=== PATIENT | female | born 1995 ===

== ENCOUNTER 2018-04-12 17:24 | Emergency (ER) | payer OTHER ==
[2018-04-12 17:36] VITALS: O2SAT 100
--- NOTE | 2018-04-12 18:22 | ED PDOC ---
HPI: Female Pain Time Seen by Provider: 04/12/18 17:26 Chief Complaint (Nursing): Female Genitourinary Chief Complaint (Provider): Vaginal bleeding in - 5 weeks 6 days History Per: Patient History/Exam Limitations: clinical condition Onset/Duration Of Symptoms: Days Current Symptoms Are (Timing): Still Present Associated Symptoms: denies: Fever, Chills, Nausea, Vomiting, Loss Of Appetite Additional Complaint(s): 22 yo female at 5 weeks and 6 days gestation presents with 2 days of vaginal bleeding. Pt states it was similar to menses yesterday and slightly less today. PT states she was in [place] and was seen monday for . Pt did not have US. PT is not taking vitamins. Pt denies pain.. Past Medical History Reviewed: Historical Data, Nursing Documentation, Vital Signs Vital Signs: Last Vital Signs Temp 98.2 F 04/12/18 17:33 Pulse 85 04/12/18 17:33 Resp 14 04/12/18 17:33 BP 102/67 04/12/18 17:33 Pulse Ox 100 04/12/18 17:33 - Medical History PMH: No Chronic Diseases - Surgical History Surgical History: No Surg Hx - Family History Family History: States: No Known Family Hx - Living Arrangements Living Arrangements: With Family - Social History Current smoker - smoking cessation education provided: No Alcohol: None Drugs: Denies - Allergies Allergies/Adverse Reactions: Allergies Allergy/AdvReac Type Severity Reaction Status Date / Time No Known Allergies Allergy Verified 04/12/18 17:33 Review of Systems ROS Statement: Except As Marked, All Systems Reviewed And Found Negative Constitutional: Negative for: Fever, Chills Genitourinary Female: Positive for: Vaginal Bleeding. Negative for: Hematuria, Vaginal Discharge, Pelvic Pain Physical Exam - Reviewed Nursing Documentation Reviewed: Yes Vital Signs Reviewed: Yes - Physical Exam Appears: Positive for: Well, Non-toxic, No Acute Distress Head Exam: Positive for: ATRAUMATIC, NORMAL INSPECTION, NORMOCEPHALIC Skin: Positive for: Normal Color, Warm, DRY Eye Exam: Positive for: Normal appearance ENT: Positive for: Normal ENT Inspection Neck: Positive for: Normal, Painless ROM Cardiovascular/Chest: Positive for: Regular Rate, Rhythm Respiratory: Positive for: Normal Breath Sounds. Negative for: Accessory Muscle Use, Respiratory Distress Gastrointestinal/Abdominal: Positive for: Normal Exam. Negative for: Tenderness , Guarding, Rebound Back: Positive for: Normal Inspection Extremity: Positive for: Normal ROM Neurologic/Psych: Positive for: Alert - Laboratory Results Result Diagrams: 04/12/18 18:40 04/12/18 18:40 - ECG O2 Sat by Pulse Oximetry: 100 Medical Decision Making Medical Decision Making: (+) gestational sac (+) yolk sac Cervix closed. Disposition - Clinical Impression Clinical Impression: Threatened miscarriage in early , Need for rhogam due to Rh negative mother - Patient ED Disposition Is Patient to be Admitted: No Counseled Patient/Family Regarding: Diagnosis, Need For Followup - Disposition Referrals: [facility] [Outside] [facility] [Outside[facility] Disposition: Routine/Home Disposition Time: 20:32 Condition: GOOD Additional Instructions: Please follow-up with [facility] Instructions: Threatened Miscarriage Forms: [employer] (Turkmen)
[2018-04-12 18:42] LABS: SQUAMOUS EPITHIAL 1 /hpf (0-5); URINE BILIRUBIN NEGATIVE (NEGATIVE); URINE BLOOD NEGATIVE (NEGATIVE); URINE CLARITY CLEAR (Clear); URINE COLOR YELLOW (YELLOW); URINE GLUCOSE (UA) NEG (Normal); URINE LEUKOCYTE ESTERASE NEG Leu/uL (Negative); URINE PROTEIN NEGATIVE (NEGATIVE); URINE UROBILINOGEN 0.2-1.0 mg/dL (0.2-1.0)
[2018-04-12 18:53] LABS: BASO % 0.3 % (0.0-2.0); EOS # 0.1 K/uL (0.0-0.7); EOS % 0.9 % (0.0-4.0); HEMOGLOBIN 12.4 g/dL (12.0-16.0); LYMPH # 1.9 K/uL (1.0-4.3); LYMPH % 23.9 % (20.0-40.0); MEAN CELL VOLUME 86.6 fl (81.0-99.0); MEAN CORPUSCULAR HEMOGLOBIN 29.8 pg (27.0-31.0); MEAN CORPUSCULAR HGB CONC 34.4 g/dL (33.0-37.0); MEAN PLATELET VOLUME 7.3 fl (7.2-11.7); MONO # 0.5 K/uL (0.0-0.8); MONO % 5.8 % (0.0-10.0); NEUT # 5.4 K/uL (1.8-7.0); NEUT % 69.1 % (50.0-75.0); NRBC % 0.2 % (0.0-0.0); RBC 4.17 Mil/uL (3.80-5.20); RED CELL DISTRIBUTION WIDTH 13.9 % (11.5-14.5); WHITE BLOOD COUNT 7.9 K/uL (4.8-10.8)
[2018-04-12 19:06] LABS: ALB/GLOB RATIO 1.3 (1.0-2.1); ALT/SGPT 34 U/L (9-52); AST/SGOT 27 U/L (14-36); BLOOD UREA NITROGEN 12 mg/dl (7-17); CALCIUM 8.9 mg/dL (8.4-10.2); GFR AFRICAN-AMERICAN > 60; GFR NON-AFRICAN AMERICAN > 60
[2018-04-12 22:11] VITALS: BP 118/71; PULSE 90; RESP 16; TEMP 98.4
--- NOTE | 2018-04-13 09:17 | US ---
PROCEDURE: OB Pelvic Ultrasound HISTORY: Vaginal bleeding in COMPARISON: None available. FINDINGS: UTERUS: Intrauterine gestational sac identified. The sac diameter is 12 mm equivalent to 5 weeks 2 days gestational age. No pole identified. No cardiac activity observed. 3 mm yolk sac identified. viability is not yet established. Followup with serial beta HCG evaluation and transvaginal ultrasound is advised. Date of delivery (Ultrasound estimated) : 12/11/2018 rufino-gestational hemorrhage: None. Uterus measures 5.8 x 3.5 x 4.4 cm. No mass CERVIX: Long and closed. No cervical abnormality seen. RIGHT OVARY: Measures 2.7 x 1.4 x 2.6 cm. No mass. Normal flow. LEFT OVARY: Measures 1.9 x 1.2 x 2.4 cm. No mass. Normal flow. FREE FLUID: None. OTHER FINDINGS: None. IMPRESSION: Intrauterine gestational sac. Sac diameter corresponds to 5 weeks 2 days gestational age. No pole or cardiac activity is observed at this time. viability is not yet established. Followup with serial beta HCG and transvaginal pelvic ultrasound is advised. No subchorionic hemorrhage. Otherwise unremarkable. The preliminary findings for this examination were reported by [employer] at 8:26 p.m. on 04/12/2018. There is concurrence of this report with the preliminary findings.
== END 2018-04-12 22:10 | disposition home or self-care (01) ==
LOC: H.ER 17:24
DX: O20.0 Threatened abortion (principal); Z3A.01 Less than 8 weeks gestation of pregnancy
CPT/HCPCS: 76830; 80053; 81003; 81025; 84702; 85025; 86850; 86900; 87086; 99284; J2792

== ENCOUNTER 2018-05-07 19:08 | Emergency (ER) | payer SELFPAY ==
[2018-05-07 19:21] VITALS: O2SAT 100
--- NOTE | 2018-05-07 20:50 | ED PDOC ---
HPI: Abdomen Time Seen by Provider: 05/07/18 20:23 Chief Complaint (Nursing): Abdominal Pain Chief Complaint (Provider): abdominal pain History Per: Patient History/Exam Limitations: no limitations Onset/Duration Of Symptoms: Days (4), Waxing/Waning Current Symptoms Are (Timing): Still Present Location Of Pain/Discomfort: Diffuse Quality Of Discomfort: "Pain" Additional Complaint(s): 22 y/o female, approximately 8 weeks gestation, presents for evaluation of diffuse intermittent abdominal pain x 4 days. Pain worsened after eating. Denies fever, nausea/vomiting, chest pain, shortness of breath, palpitations, changes in bowel movements, dysuria/hematuria, vaginal bleeding/discharge Past Medical History Reviewed: Historical Data, Nursing Documentation, Vital Signs Vital Signs: Last Vital Signs Temp 98.1 F 05/07/18 19:18 Pulse 84 05/07/18 19:18 Resp 14 05/07/18 19:18 BP 102/66 05/07/18 19:18 Pulse Ox 100 05/07/18 22:29 - Medical History PMH: No Chronic Diseases - Surgical History Other surgeries: breast augmentation - Family History Family History: States: No Known Family Hx - Home Medications Home Medications: Ambulatory Orders Medication Instructions Recorded Nitrofurantoin Macrocrystals 100 mg PO BID #13 cap 05/07/18 [Macrobid] - Allergies Allergies/Adverse Reactions: Allergies Allergy/AdvReac Type Severity Reaction Status Date / Time No Known Allergies Allergy Verified 05/07/18 19:17 Review of Systems ROS Statement: Except As Marked, All Systems Reviewed And Found Negative Gastrointestinal: Positive for: Abdominal Pain Physical Exam - Reviewed Nursing Documentation Reviewed: Yes Vital Signs Reviewed: Yes - Physical Exam Appears: Positive for: Well, Non-toxic, No Acute Distress Head Exam: Positive for: ATRAUMATIC, NORMAL INSPECTION, NORMOCEPHALIC Skin: Positive for: Normal Color Eye Exam: Positive for: Normal appearance ENT: Positive for: Normal ENT Inspection Cardiovascular/Chest: Positive for: Regular Rate, Rhythm Respiratory: Positive for: Normal Breath Sounds Gastrointestinal/Abdominal: Positive for: Bowel Sounds, Soft, Tenderness ( epigastric, ruq, luq, rlq, suprapubic) Back: Positive for: Normal Inspection Extremity: Positive for: Normal ROM Neurologic/Psych: Positive for: Alert, Oriented (x3) - Laboratory Results Result Diagrams: 05/07/18 22:03 - ECG O2 Sat by Pulse Oximetry: 100 - Progress ED Course And Treament: labs, urine, u/s EXAM: US Abdomen Limited, Right Upper Quadrant EXAM DATE/TIME: 05/07/2018 8:46 PM CLINICAL HISTORY: 22 years old, female; Pain; Abdominal pain; Periumbilical; ; Additional info: Abd pain TECHNIQUE: Real-time ultrasound of the abdomen with image documentation. Examination is focused on the right upper quadrant. COMPARISON: No relevant prior studies available. FINDINGS: Liver: Normal. No masses. Gallbladder: The gallbladder is incompletely distended no gallstones are present. Gallbladder wall measures 2.5 mm Common bile duct: Normal. No stones. 2.2 mm Pancreas: Visualized pancreas is unremarkable. Right kidney: RIGHT kidney measures 9.9 cm x 4 cm x 4.3 cm IMPRESSION: 1. Incompletely distended gallbladder without stones 2. Otherwise negative examination EXAM: US , Transvaginal CLINICAL HISTORY: 22 years old, female; Pain; complicated by abdominal or pelvic pain; Lower; First trimester; Gestational age or lmp: 03/02/2018; ; Additional info: ; Pain TECHNIQUE: Real-time transvaginal obstetrical ultrasound of the maternal pelvis and a first trimester with image documentation. Transvaginal imaging was used for better evaluation of the fetus and adnexa. COMPARISON: US - TRANSVAGINAL 04/12/2018 6:27 PM FINDINGS: Gestation: Intrauterine gestational sac is seen 3.5 cm 8 weeks 5 days. Yolk sac is visible A fetus is present CRL 2.1 cm 8 weeks 5 days JEROME 12/12/2018. Heart rate 185 bpm Clinical gestational age 9 weeks 3 days JEROME 12/07/2018 Placenta/amniotic fluid: Cannot be adequately evaluated due to the early gestational age. Uterus/cervix: Unremarkable. No myometrial mass. Uterus 7.9 cm x 6 cm x 7 cm The cervix measures 3.3 cm Ovaries: Unremarkable. No mass. LEFT 2 cm x 1.3 cm 1.4 cm, RIGHT not visible Free fluid: A small collection of free fluid is seen in the cul-de-sac IMPRESSION: 1. Single living intrauterine . 2. Gestational age 8 weeks 5 days JEROME 12/12/2018 3. Negative LEFT ovary 4. Negative uterus and cervix 5. RIGHT ovary not visible 6. Small collection of free fluid in the cul-de-sac Patient educated on findings, discharged with rx Macrobid (dose given in ED) Advised follow up [place] 2-3 days Return precautions given Disposition - Clinical Impression Clinical Impression: UTI (urinary tract infection), Abdominal pain during - Patient ED Disposition Is Patient to be Admitted: No Counseled Patient/Family Regarding: Studies Performed, Diagnosis, Need For Followup, Rx Given - Disposition [facility]errals[facility] [[facility]] Disposition: Routine/Home Disposition Time: 22:39 Condition: IMPROVED Prescriptions: Nitrofurantoin Macrocrystals [Macrobid] 100 mg PO BID #13 cap Instructions: Urinary Tract Infections in Adults, Round Ligament Pain
[2018-05-07 21:57] LABS: SQUAMOUS EPITHIAL 13 /hpf (0-5); URINE BACTERIA RARE (<OCC); URINE BILIRUBIN NEGATIVE (NEGATIVE); URINE BLOOD NEGATIVE (NEGATIVE); URINE CLARITY CLOUDY (Clear); URINE COLOR YELLOW (YELLOW); URINE GLUCOSE (UA) NEG (Normal); URINE LEUKOCYTE ESTERASE MOD Leu/uL (Negative); URINE PROTEIN 30 mg/dL (NEGATIVE); URINE UROBILINOGEN 0.2-1.0 mg/dL (0.2-1.0)
[2018-05-07 22:10] LABS: BASO % 0.2 % (0.0-2.0); EOS % 0.4 % (0.0-4.0); HEMOGLOBIN 13.3 g/dL (12.0-16.0); LYMPH # 1.3 K/uL (1.0-4.3); LYMPH % 16.4 % (20.0-40.0); MEAN CELL VOLUME 86.3 fl (81.0-99.0); MEAN CORPUSCULAR HEMOGLOBIN 30.1 pg (27.0-31.0); MEAN CORPUSCULAR HGB CONC 34.9 g/dL (33.0-37.0); MEAN PLATELET VOLUME 7.6 fl (7.2-11.7); MONO # 0.4 K/uL (0.0-0.8); NEUT # 5.9 K/uL (1.8-7.0); RBC 4.43 Mil/uL (3.80-5.20); RED CELL DISTRIBUTION WIDTH 13.4 % (11.5-14.5); WHITE BLOOD COUNT 7.6 K/uL (4.8-10.8)
[2018-05-07 22:49] VITALS: BP 101/69; PULSE 66; RESP 18; TEMP 98.3
[2018-05-07 23:29] LABS: ALB/GLOB RATIO 1.3 (1.0-2.1); ALBUMIN 4.5 g/dL (3.5-5.0); ALT/SGPT 18 U/L (9-52); AST/SGOT 25 U/L (14-36); BLOOD UREA NITROGEN 9 mg/dl (7-17); CALCIUM 9.9 mg/dL (8.4-10.2); GFR NON-AFRICAN AMERICAN > 60; LIPASE 102 U/L (23-300)
--- NOTE | 2018-05-08 11:34 | US ---
Date of service: 05/07/2018 HISTORY: abd pain COMPARISON: None. TECHNIQUE: Sonographic evaluation of the right upper quadrant of the abdomen. FINDINGS: LIVER: Measures 13.9 cm in length. Mildly increased echogenicity of the liver parenchyma. No mass. No intrahepatic bile duct dilatation. GALLBLADDER: Gallbladder is partially contracted. Patient apparently had a meal some 2 hours previously. Gallbladder evaluation is limited particularly of the wall. COMMON BILE DUCT: Measures 2.1 mm. No stones. No dilatation. PANCREAS: Unremarkable as visualized. No mass. No ductal dilatation. RIGHT KIDNEY: Measures 10.0 cm in length. Normal echogenicity. No calculus, mass, or hydronephrosis. AORTA: No aneurysmal dilatation. IVC: Unremarkable. OTHER FINDINGS: None . IMPRESSION: Gallbladder is partially contracted limiting evaluation the wall due to patient eating some 2 hours previously. No definite pericholecystic fluid collection or cholelithiasis. Normal CBD caliber. Limited diffuse fatty infiltration liver suggested though other etiologies are possible. The remainder the examination is unremarkable.
--- NOTE | 2018-05-08 11:40 | US ---
Date of service: 05/07/2018 HISTORY: ; pain COMPARISON: Transvaginal obstetric ultrasound 04/12/2018. TECHNIQUE: Transvaginal ultrasonography of the was performed using sagittal and transverse projections as well as Doppler ultrasonography. FINDINGS: UTERUS: Measures 7.9 x 7.1 x 6.1 cm. Use anteverted and mildly enlarged without myometrial mass in the interval. ENDOMETRIUM: A single viable intrauterine gestation is now identified within the gestational sac with yolk sac and an and membrane identified as well. Cardiac activity identified up to 185 beats per minute and mean crown-rump length measurement indicates an 8 week 5 day intrauterine gestational age which is equivalent to gestational sac derived dates. Mean sac diameter is 3.56 cm with crown-rump length measurement of 2.11 cm. Yolk sac measures 0.44 cm. CERVIX: 3.4 cm, closed internal os. RIGHT OVARY: Not identified. No suspicious adnexal mass or fluid collection appreciable. LEFT OVARY: Measures 2.0 x 1.5 x 1.3 cm. No solid mass. Normal flow. FREE FLUID: No suspicious fluid collection. OTHER FINDINGS: None. IMPRESSION: A single viable intrauterine gestation is identified with average ultrasonic age of 8 weeks 5 days representing normal interval growth compared prior ultrasound 04/12/2018. No decidual hemorrhage appreciable and no suspicious adnexal findings are identified however bowel obscures evaluation of the right ovary which is not seen at this time. Clinical follow-up recommended. Concordant preliminary report from [facility], 05/07/2018.
== END 2018-05-07 22:55 | disposition home or self-care (01) ==
LOC: H.ER 19:08
DX: O23.41 Unspecified infection of urinary tract in pregnancy, first trimester (principal); O26.91 Pregnancy related conditions, unspecified, first trimester; R10.2 Pelvic and perineal pain; Z3A.08 8 weeks gestation of pregnancy

== ENCOUNTER 2018-12-12 14:06 | Emergency (ER) | payer OTHER ==
[2018-12-12 20:09] VITALS: BP 119/63; PULSE 78
== END 2018-12-12 15:32 | disposition home or self-care (01) ==
LOC: H.EROB2 14:06
DX: O36.8131 Decreased fetal movements, third trimester, fetus 1 (principal); O26.93 Pregnancy related conditions, unspecified, third trimester; N89.8 Other specified noninflammatory disorders of vagina; Z3A.40 40 weeks gestation of pregnancy; O48.0 Post-term pregnancy